=== PATIENT | female | born 1985 | race Hispanic/Latino ===

== ENCOUNTER 2017-08-04 13:13 | Emergency (ER) | payer BC ==
[2017-08-04 14:20] LABS: Urine Bacteria <20 /HPF (<20); Urine RBC <5 /HPF (NONE SEEN)
[2017-08-04 14:20] LABS: Urine Blood 1+ (NEG); Urine Glucose NEGATIVE (NEG); Urine Protein NEGATIVE (NEG)
[2017-08-04 14:21] LABS: Urine Culture Reflex Order NOT NEEDED
[2017-08-04] MEDS ORDERED: ONDANSETRON 4 MG (ODT) TAB ONE (14:48)
--- NOTE | 2017-08-04 15:52 | EDPHYS ---
Physician Documentation [facility] Name: Jessica Dallas Age: 32 yrs Sex: Female : 1985 Arrival Date: 08/04/2017 Time: 13:16 Bed 20 Private MD: None, None ED Physician Monster Jarvis HPI: 08/04 14:28 This 32 yrs old Female presents to ER via Ambulatory with complaints of snw Nausea, Dizziness. 14:28 The patient presents to the emergency department with nausea, vomiting. Onset: The snw symptoms/episode began/occurred suddenly, this morning. Possible causes: unknown. Associated signs and symptoms: Pertinent positives: nausea. Severity of symptoms: At their worst the symptoms were mild. The patient has not experienced similar symptoms in the past. It is unknown whether or not the patient has recently seen a physician. 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 - Social history:: Smoking status: Patient/guardian denies using tobacco. - Ebola Screening: : Patient negative for fever greater than or equal to 101.5 degrees Fahrenheit, and additional compatible Ebola Virus Disease symptoms Patient denies exposure to infectious person Patient denies travel to an Ebola-affected area in the 21 days before illness onset. ROS: 14:27 Constitutional: Negative for fever, chills, and weight loss, Eyes: Negative for injury, snw pain, redness, and discharge, ENT: Negative for injury, pain, and discharge, Neck: Negative for injury, pain, and swelling, Cardiovascular: Negative for chest pain, palpitations, and edema, Respiratory: Negative for shortness of breath, cough, wheezing, and pleuritic chest pain, Back: Negative for injury and pain, : Negative for injury, bleeding, discharge, and swelling, MS/Extremity: Negative for injury and deformity, Skin: Negative for injury, rash, and discoloration. 14:27 Abdomen/GI: Positive for nausea. 14:27 Neuro: Positive for dizziness. Exam: 14:25 Constitutional: This is a well developed, well nourished patient who is awake, alert, snw and in no acute distress. Head/Face: Normocephalic, atraumatic. Eyes: Pupils equal round and reactive to light, extra-ocular motions intact. Lids and lashes normal. Conjunctiva and sclera are non-icteric and not injected. Cornea within normal limits. Periorbital areas with no swelling, redness, or edema. ENT: Nares patent. No nasal discharge, no septal abnormalities noted. Tympanic membranes are normal and external auditory canals are clear. Oropharynx with no redness, swelling, or masses, exudates, or evidence of obstruction, uvula midline. Mucous membranes moist. Neck: Trachea midline, no thyromegaly or masses palpated, and no cervical lymphadenopathy. Supple, full range of motion without nuchal rigidity, or vertebral point tenderness. No Meningismus. Chest/axilla: Normal chest wall appearance and motion. Nontender with no deformity. No lesions are appreciated. Cardiovascular: Regular rate and rhythm with a normal S1 and S2. No gallops, murmurs, or rubs. Normal PMI, no JVD. No pulse deficits. Respiratory: Lungs have equal breath sounds bilaterally, clear to auscultation and percussion. No rales, rhonchi or wheezes noted. No increased work of breathing, no retractions or nasal flaring. Abdomen/GI: Soft, non-tender, with normal bowel sounds. No distension or tympany. No guarding or rebound. No evidence of tenderness throughout. Back: No spinal tenderness. No costovertebral tenderness. Full range of motion. Skin: Warm, dry with normal turgor. Normal color with no rashes, no lesions, and no evidence of cellulitis. MS/ Extremity: Pulses equal, no cyanosis. Neurovascular intact. Full, normal range of motion. Neuro: Awake and alert, GCS 15, oriented to person, place, time, and situation. Cranial nerves II-XII grossly intact. Motor strength 5/5 in all extremities. Sensory grossly intact. Cerebellar exam normal. Normal gait. Psych: Awake, alert, with orientation to person, place and time. Behavior, mood, and affect are within normal limits. Vital Signs: 13:39 BP 117 / 86; Pulse 96; Resp 16; Temp 98.8; Pulse Ox 98% on R/A; Weight 71.21 kg; Height aj 5 ft. 1 in. (154.94 cm); 13:51 BP 114 / 71 LA Supine (auto/reg); Pulse 88; Pulse Ox 99% on R/A; ae1 13:53 BP 119 / 78 LA Sitting (auto/reg); Pulse 106; Pulse Ox 99% on R/A; ae1 13:55 BP 117 / 81; Pulse 102; Pulse Ox 99% on R/A; ae1 14:53 BP 104 / 65; Pulse 79; Resp 18; Pulse Ox 99% ; ae1 13:39 Body Mass Index 29.66 (71.21 kg, 154.94 cm) aj MDM: 13:43 Patient medically screened. snw 15:59 Data reviewed: vital signs, nurses notes. Data interpreted: Pulse oximetry: on room air snw is 99 %. Interpretation: normal. Counseling: I had a detailed discussion with the patient and/or guardian regarding: the historical points, exam findings, and any diagnostic results supporting the discharge/admit diagnosis, lab results, the need for outpatient follow up, to return to the emergency department if symptoms worsen or persist or if there are any questions or concerns that arise at home. Special discussion: Based on the patient's Hx, exam, and Dx evaluation, there is no indication for emergent surgery or inpatient Tx. It is understood by the patient/guardian that if the Sx's persist or worsen they need to return immediately for re-evaluation. Based on the history and exam findings, there is no indication for further emergent testing or inpatient evaluation. I discussed with the patient/guardian the need to see the primary care provider for further evaluation of the symptoms. 08/04 13:43 Order name: Urine Culture snw 08/04 13:43 Order name: Urine Microscopic Only; Complete Time: 14:23 snw 08/04 13:43 Order name: Urine Test (obtain specimen); Complete Time: 14:00 snw 08/04 14:16 Order name: Urine Dipstick--Ancillary (enter results); Complete Time: 14:23 bd 08/04 14:16 Order name: Urine --Ancillary (enter results); Complete Time: 14:23 bd 08/04 13:43 Order name: Urine Dipstick-Ancillary (obtain specimen); Complete Time: 14:00 snw 08/04 13:43 Order name: Orthostatics; Complete Time: 13:58 snw 08/04 14:24 Order name: PO challenge; Complete Time: 14:55 snw Administered Medications: 14:46 Drug: Zofran 4 mg Route: PO; ae1 Disposition: 22:12 Co-signature as Attending Physician, Monster Jarvis MD I agree with the assessment and kdr plan of care. Disposition: 08/04/17 15:51 Discharged to Home. Impression: Adverse effect of amphetamines - Adderall. - Condition is Stable. - Discharge Instructions: High-Fiber Diet, Iron-Rich Diet, Dizziness, Nausea, Adult, Orthostatic Hypotension. - Prescriptions for Zofran 4 mg Oral Tablet - take 1 tablet by ORAL route every 12 hours As needed; 20 tablet. - Medication Reconciliation Form, Thank You Letter, Antibiotic Education, Prescription Opioid Use form. - Follow up: Private Physician; When: 2 - 3 days; Reason: Recheck today's complaints, Continuance of care, Re-evaluation by your physician. Follow up: Emergency Department; When: As needed; Reason: Worsening of condition. Signatures: Dispatcher [employer] EDMS Lilia Delgado RN RN Monster Thayer MD MD [facility] Kathya Baltazar, MOVIE OPERATOR-C MOVIE OPERATOR-Csnw Alejandra Hartmann, RN RN aa5 Omar Laird RN RN ae1 Corrections: (The following items were deleted from the chart) 16:05 15:51 08/04/2017 15:51 Discharged to Home. Impression: Adverse effect of amphetamines - aa5 Adderall. Condition is Stable. Forms are Medication Reconciliation Form, Thank You Letter, Antibiotic Education, Prescription Opioid Use. Follow up: Private Physician; When: 2 - 3 days; Reason: Recheck today's complaints, Continuance of care, Re-evaluation by your physician. Follow up: Emergency Department; When: As needed; Reason: Worsening of condition. snw
--- NOTE | 2017-08-04 15:52 | ER ---
Nurse's Notes [facility] Name: Jessica Dallas Age: 32 yrs Sex: Female : 1985 Arrival Date: 08/04/2017 Time: 13:16 Bed 20 Private MD: None, None Diagnosis: Adverse effect of amphetamines-Adderall Presentation: 08/04 13:38 Presenting complaint: Patient states: Patient reports episodes of dizziness with nausea aj that is worse when standing up or laying down. Transition of care: patient was not received from another setting of care. Onset of symptoms was August 04, 2017. Care prior to arrival: None. 13:38 Method Of Arrival: Ambulatory aj 13:38 Acuity: CHERI 4 aj 14:05 Risk Assessment: Do you want to hurt yourself or someone else? Patient reports no ae1 desire to harm self or others. Initial Sepsis Screen: Does the patient meet any 2 criteria? No. Patient's initial sepsis screen is negative. Does the patient have a suspected source of infection? No. Patient's initial sepsis screen is negative. Triage Assessment: 13:39 General: Appears in no apparent distress. comfortable, Behavior is calm, cooperative, aj appropriate for age. Pain: Denies pain. Neuro: Level of Consciousness is awake, alert, obeys commands, Oriented to person, place, time, situation, Appropriate for age. Respiratory: Airway is patent Respiratory effort is even, unlabored, Respiratory pattern is regular, symmetrical. GI: Reports nausea. Derm: Skin is intact, is healthy with good turgor, Skin is pink, warm \T\ dry. normal. 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 - Social history:: Smoking status: Patient/guardian denies using tobacco. - Ebola Screening: : Patient negative for fever greater than or equal to 101.5 degrees Fahrenheit, and additional compatible Ebola Virus Disease symptoms Patient denies exposure to infectious person Patient denies travel to an Ebola-affected area in the 21 days before illness onset. Screenin:01 Abuse screen: Denies threats or abuse. Nutritional screening: No deficits noted. ae1 Tuberculosis screening: No symptoms or risk factors identified. Fall Risk None identified. Assessment: 14:06 General: Appears in no apparent distress. comfortable, Behavior is calm, cooperative. ae1 Pain: Denies pain. Neuro: Level of Consciousness is awake, alert, obeys commands, Oriented to person, place, time, situation. Neuro: Reports dizziness. Neuro: Reports. Cardiovascular: Heart tones S1 S2 present Patient's skin is warm and dry. Respiratory: Airway is patent Breath sounds are clear bilaterally. GI: Reports nausea. : No signs and/or symptoms were reported regarding the genitourinary system. EENT: No signs and/or symptoms were reported regarding the EENT system. Derm: Skin is normal. Musculoskeletal: No signs and/or symptoms reported regarding the musculoskeletal system. 14:52 Reassessment: Patient appears in no apparent distress at this time. No changes from ae1 previously documented assessment. Vital Signs: 13:39 BP 117 / 86; Pulse 96; Resp 16; Temp 98.8; Pulse Ox 98% on R/A; Weight 71.21 kg; Height aj 5 ft. 1 in. (154.94 cm); 13:51 BP 114 / 71 LA Supine (auto/reg); Pulse 88; Pulse Ox 99% on R/A; ae1 13:53 BP 119 / 78 LA Sitting (auto/reg); Pulse 106; Pulse Ox 99% on R/A; ae1 13:55 BP 117 / 81; Pulse 102; Pulse Ox 99% on R/A; ae1 14:53 BP 104 / 65; Pulse 79; Resp 18; Pulse Ox 99% ; ae1 13:39 Body Mass Index 29.66 (71.21 kg, 154.94 cm) aj ED Course: 13:16 Patient arrived in ED. mr 13:16 None, None is Private Physician. mr 13:39 Triage completed. aj 13:39 Arm band placed on right wrist. Patient placed in an exam room. aj 13:41 Omar Laird, LUPE is Primary Nurse. ae1 13:41 Kath[facility] Baltazar F[facility]-C [facility]. snw 13:41 Monster Jarvis MD is Attending Physician. snw 14:00 Bed in low position. Call light in reach. Side rails up X 1. Pulse ox on. NIBP on. ae1 14:00 Urine collected: clean catch specimen, clear, lexa colored. jb1 Administered Medications: 14:46 Drug: Zofran 4 mg Route: PO; ae1 Outcome: 15:51 Discharge ordered by MD. hall 16:05 Patient left the ED. aa5 Signatures: Rudy Sepulveda jb1 Lilia Delgado RN RN Kathya Hess, APPOINTMENT SETTER-C APPOINTMENT SETTER-Csnw Emily Tavares mr Alejandra Hartmann, RN RN aa5 Omar Laird RN RN ae1
[2017-08-04 16:10] VITALS: TEMP 98.8
[2017-08-04 16:11] VITALS: O2SAT 99
[2017-08-04 16:15] VITALS: BP 104/65
== END 2017-08-04 16:05 | disposition home or self-care (01) ==
LOC: ER 13:13
DX: R11.2 Nausea with vomiting, unspecified (principal); R42 Dizziness and giddiness; T43.625A Adverse effect of amphetamines, initial encounter
CPT/HCPCS: 81003; 81015; 81025; 87086; 87088; 99283